=== PATIENT | female | born 1955 | race Caucasian/White ===

== ENCOUNTER → 2017-01-17 | Day surgery (SDC) | payer MEDICAID ==
[~2017-01-17] MED LIST: ACETAMINOPHEN650 M1 PO; AMLODIPINE BESYL5 MG PO; ASPIRIN81 MG PO; ATENOLOL PO; BENADRYL25 M1 PO; CATAPRES0.1 MG PO; CELEXA20 MG PO; CLOPIDOGREL BIS75 MG PO; CRESTOR10 MG PO; FAMOTIDINE PO; FIORICET1 TAB PO; IMDUR-ER60 M2 PO; ISOSORBIDE MONO30 M1 PO; LIPITOR PO; LISINOPRIL20 MG PO; METOPROLOL SUCC25 MG PO; MULTI VITAMIN1 EACH PO; NEURONTIN300 MG PO; NORVASC10 MG PO; PHENERGAN25 M1 PO; PLAVIX PO; PRINIVIL40 MG PO; VITAL-D RX TABL1 TAB PO; VITAMIN D250000 UNIT PO; [UNRECOGNIZED DRUG - OTHER] PO
--- NOTE | ~2017-01-17 | OR ---
Unit #: [id number] #: [id number] Patient: HOMERO MEEHAN [id number] [address] [address] [id number] O MR#: [id number] NAME: HOMERO MEEHAN ROOM: Date of Procedure: 01/17/2017 Admission Date: 01/17/2017 Surgeon: Amandeep Sinclair M.D. : 1955 Attending Physician: Amandeep Sinclair M.D. Primary Care Physician: Garland Martinez Pa-C OPERATIVE REPORT PREOPERATIVE DIAGNOSES 1. Abnormal weight loss. 2. Upper and mid abdominal pain. POSTOPERATIVE DIAGNOSES 1. Abnormal weight loss. 2. Upper and mid abdominal pain. PROCEDURES PERFORMED 1. Esophagogastroduodenoscopy. 2. Biopsy of antrum for Helicobacter pylori testing. 3. Colonoscopy to cecum. ANESTHESIA Monitored anesthesia care. FINDINGS The patient was found to have ulcer in the duodenal bulb. She was found to have mild gastritis. On colonoscopy, the patient had poor prep; however, we were able to irrigate out the majority of the colon and no gross lesions or obvious abnormalities were seen. SPECIMENS Sent to pathology. COMPLICATIONS None apparent. CONDITION The patient tolerated the procedure well. INDICATIONS FOR PROCEDURE The patient is a 61-year-old white female, who has had a history of stroke in the past. She has had increased mid and upper abdominal pain. She has had abnormal weight loss of 20 to 30 pounds. She presents at this time for evaluation by upper and lower endoscopy. 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 DESCRIPTION OF PROCEDURE After obtaining informed consent, the patient was brought to the endoscopy suite and after adequate monitored anesthesia care, had the endoscope Unit #: [id number] #: [id number] Patient: HOMERO MEEHAN placed through the mouth into the upper esophagus under direct vision. It was advanced to the second portion of the duodenum without difficulty with the lumen always in view. The second and third portion of the duodenum were normal. In the duodenal bulb, there was a duodenal ulcer present. There was no evidence of bleeding or stigmata of recent bleeding. It was moderate in depth. On pulling through the pylorus, the pylorus opened normally. There was some mild distal gastritis present. A biopsy was obtained for Helicobacter pylori testing. On retroflexing back to the GE junction, there was no obvious hiatal hernia present. There was no abnormality found in the proximal third, middle third, or incisura. On pulling back above the GE junction, there was no stenosis, stricture, or neoplasm seen. There was no significant esophagitis. The remaining portion of the esophagus was within normal limits. Laryngeal structures were grossly normal as viewed from above. At this point in time, the colonoscope was placed through the anus and slowly advanced to the level of the cecum without difficulty with lumen always in view. The patient had a poor prep. There was quite a bit of thick green liquid present. After irrigation, the cecum and the area of the ileocecal valve appeared normal. We required quite a bit of irrigation to wash out the colon and quite a bit of suctioning; however, the vast majority was seen. There was no obvious abnormalities or gross lesion seen in the ascending colon, hepatic flexure, transverse colon, splenic flexure, descending colon, sigmoid colon, or rectum. On retroflexing in the rectum to the anorectal junction, there was no obvious abnormality seen. The patient tolerated the procedure well and went from the endoscopy suite to recovery area in stable condition. RECOMMENDATIONS No aspirin or nonsteroidal anti-inflammatory medication, GERD sheet, prescription for omeprazole. Follow up in the office next week. High-fiber diet, lots of liquids, tucks or wipes p.r.n. The patient is scheduled for an upper GI next week to further evaluate the stomach. If her symptoms persist and there is rotation of the stomach, she may possibly need a reduction of the hiatal hernia and repair with an antireflux procedure. Dictated by... Rainer Ibrahim/nicko TD: 01/17/2017 16:59 JOB #: [id number] CC: [facility] Melody Owens M.D. OPERATIVE REPORT Page 1 of 1 X Amandeep Sinclair MD X PROCEDURE OPERATIVE NOTE
== END | disposition home or self-care (01) ==
LOC: COPS 07:43
DX: K29.70 Gastritis, unspecified, without bleeding (principal); K44.9 Diaphragmatic hernia without obstruction or gangrene; R63.4 Abnormal weight loss; K21.9 Gastro-esophageal reflux disease without esophagitis; F32.9 Major depressive disorder, single episode, unspecified; F17.210 Nicotine dependence, cigarettes, uncomplicated; F30.9 Manic episode, unspecified; I10 Essential (primary) hypertension; E78.5 Hyperlipidemia, unspecified; M19.90 Unspecified osteoarthritis, unspecified site; I25.10 Atherosclerotic heart disease of native coronary artery without angina pectoris; E78.00 Pure hypercholesterolemia, unspecified; Z86.73 Personal history of transient ischemic attack (TIA), and cerebral infarction without residual deficits; Z88.8 Allergy status to other drugs, medicaments and biological substances; Z88.6 Allergy status to analgesic agent; Z98.49 Cataract extraction status, unspecified eye; Z90.49 Acquired absence of other specified parts of digestive tract; Z90.710 Acquired absence of both cervix and uterus; Z95.818 Presence of other cardiac implants and grafts; Z98.890 Other specified postprocedural states; Z79.899 Other long term (current) drug therapy; Z79.01 Long term (current) use of anticoagulants
CPT/HCPCS: 87077

== ENCOUNTER → 2017-01-21 | Outpatient (CLI) | payer MEDICAID ==
--- NOTE | ~2017-01-21 | CR269 ---
[facility] A Service of [facility] RADIOLOGY TEXT RESULTS PATIENT: HOMERO MEEHAN LOCATION: [facility] : 57 UNIT #: [id number] AGE: [address]: Amandeep Sinclair MD SEX: F ORDER DR: [id number] [facility] [address] [place], [place] [address] [id number] O MR#: [id number] Acc #: [id number] NAME: HOMREO MEEHAN : 1955 SEX: F STUDY DATE/TIME: 01/21/2017 9:13 UNIT: [facility] ROOM: STUDY DESCRIPTION: CR Upper GI and SBFT Attending Physician: Amandeep Sinclair M.D. Referring Physician: Amandeep Sinclair M.D. Ordering Physician: Amandeep Sinclair M.D. Primary Care Physician: Melody Owens M.D. MEDICAL IMAGING REPORT This report is preliminary unless electronic signature is present EXAM Fluoroscopic upper GI and small bowel follow-through COMPARISON CT head with contrast dated December 29, 2014. INDICATION 61-year-old female with left side abdominal pain since November 2016, worse with eating. Patient recently underwent upper endoscopy demonstrating a gastric ulcer. No hiatal hernia. Patient also reports intermittent diarrhea and constipation. FINDINGS Total fluoro time was 1.3 minutes. 20 images were obtained. Unilateral carotid stent is noted in the neck. Positioning of the patient was limited due to patient's prior stroke. There is no evidence of aspiration on current exam. There are minimal tertiary contractions of the mid to distal esophagus. No evidence of esophageal mucosal lesion. There is a small reducible hiatal hernia. This becomes more prominent with Valsalva and reduces upon relaxation. There is no gastroesophageal reflux seen spontaneously or with Valsalva or water siphon. There is normal caliber of the esophagus. No convincing evidence of esophageal mucosal lesion. No extrinsic compression on the esophagus. Along the dependent wall of the gastric antrum there is apparent pooling of barium which may reflect the patient's known gastric ulcer. Correlation with upper endoscopy is recommended. There is normal configuration of the stomach. No evidence of gastric volvulus. There is subjectively normal gastric emptying. Cholecystectomy clips are noted. There is normal small bowel transit time of 2 hours. Spot images of the terminal ileum were normal. There is dextroscoliosis of the lumbar spine with marginal osteophyte [facility] A Service of [facility] RADIOLOGY TEXT RESULTS PATIENT: HOMERO MEEHAN LOCATION: [facility] : 57 UNIT #: [id number] AGE: [address]: Amandeep Sinclair MD SEX: F ORDER DR: formation in multiple lumbar vertebral bodies. There is normal fold pattern of the small bowel. IMPRESSION 1. Small reducible hiatal hernia. No gastroesophageal reflux either spontaneously or with eliciting maneuvers. 2. Minimal tertiary contractions of the mid to distal esophagus. Otherwise normal fluoroscopic evaluation of the esophagus. 3. Questionable ulcer versus simply pooling of barium along the dependent wall of the gastric antrum. Correlation with the patient's recent upper endoscopy is recommended. 4. Subjectively normal gastric emptying with normal small bowel transit time. No abnormality of the small bowel is seen. Terminal ileum appears normal. 5. Prior cholecystectomy. Dictated by... Huber Bryant M.D. THIS IS AN ELECTRONICALLY VERIFIED REPORT Huber Bryant M.D. at 01/24/2017 9:55 PM ALEX/chiquita TD: 01/22/2017 04:51 JOB #: [id number] MEDICAL IMAGING REPORT Page 1 of 1 COPY
== END | disposition home or self-care (01) ==
LOC: CRAD 08:21
DX: K44.9 Diaphragmatic hernia without obstruction or gangrene (principal); Z90.49 Acquired absence of other specified parts of digestive tract
CPT/HCPCS: 74245

== ENCOUNTER → 2017-02-13 | Outpatient (CLI) | payer MEDICAID ==
--- NOTE | ~2017-02-13 | CR63 ---
[facility] A Service of [facility] RADIOLOGY TEXT RESULTS PATIENT: HOMERO MEEHAN LOCATION: [facility] : 57 UNIT #: [id number] AGE: [address]: Miah Owens MD SEX: F ORDER DR: [id number] [address] [address] [id number] O MR#: [id number] Acc #: [id number] NAME: HOMERO MEEHAN : 1955 SEX: F STUDY DATE/TIME: 02/13/2017 14:25 UNIT: [facility] ROOM: STUDY DESCRIPTION: CR Chest 2 View Attending Physician: Miah Owens M.D. Referring Physician: iMah Owens M.D. Ordering Physician: Miah Owens M.D. Primary Care Physician: Melody Owens M.D. MEDICAL IMAGING REPORT This report is preliminary unless electronic signature is present. EXAM Chest 2 views dated 02/13/2017 COMPARISON Single view chest dated 11/10/2011. HISTORY Pain with breathing on the right side of the chest, cough for 2 days. Prior smoker for 20 years. FINDINGS Two views of the chest were obtained. Pacemaker is in the right upper lateral chest wall with tip of the leads in the region of the right atrium and right ventricle. Lungs are hyperinflated which could be related to emphysematous changes in the appropriate clinical setting. No superimposed acute cardiopulmonary disease. Dictated by... Gretta Chamberlain M.D. THIS IS AN ELECTRONICALLY VERIFIED REPORT Gretta Chamberlani M.D. at 02/14/2017 2:51 PM CPR/mjs TD: 02/14/2017 06:04 JOB #: [id number] MEDICAL IMAGING REPORT [facility] A Service [facility] RADIOLOGY TEXT RESULTS PATIENT: HOMERO MEEHAN LOCATION: [facility] : 57 UNIT #: [id number] AGE: [address]: Miah Owens MD SEX: F ORDER DR: Page 1 of 1
== END | disposition home or self-care (01) ==
LOC: SRAD 14:04
DX: J18.0 Bronchopneumonia, unspecified organism (principal)
CPT/HCPCS: 71020